=== PATIENT | male | born 1965 | race Caucasian/White ===

== ENCOUNTER 2018-06-07 05:25 | Inpatient (IN) | payer BC ==
[~2018-06-07] VITALS: Ht 172.7 cm; Wt 79.5 kg
[2018-06-07 05:33] VITALS: Ht 172.7 cm; Wt 79.5 kg
[2018-06-07 06:46] LABS: CALCIUM 8.3 mg/dL (8.5-10.1); CARBON DIOXIDE 29.6 mmol/L (21-32); CREATININE SERUM 1.5 mg/dL (0.7-1.3); POTASSIUM SERUM 5.1 mmol/L (3.5-5.1)
[2018-06-07 06:51] LABS: ALBUMIN 3.6 g/dL (3.4-5.0); BILIRUBIN TOTAL 0.33 mg/dL (0.20-1.00)
[2018-06-07 06:59] LABS: BASOPHIL % 0.1 % (0-2); PLATELET COUNT 246 x10^3mcL (130-400); RED CELL DISTRIBUTION WIDTH 13.3 % (11.5-14.5)
[2018-06-07 09:41] LABS: CHOLESTEROL/HDL RATIO 3.3
[2018-06-07 10:24] VITALS: BP 115/71
[2018-06-07 16:38] VITALS: BP 96/65
[2018-06-07 20:35] VITALS: BP 94/59
[2018-06-07 23:04] VITALS: BP 94/59
[2018-06-08 06:23] VITALS: BP 117/71
[2018-06-08 08:13] VITALS: BP 123/78
[2018-06-08 11:53] VITALS: BP 104/64
[2018-06-08 16:53] VITALS: BP 113/62
[2018-06-08 19:35] VITALS: BP 120/76
[2018-06-08 21:54] VITALS: BP 118/75
[2018-06-09 06:11] VITALS: BP 136/88
[2018-06-09 06:30] LABS: CALCIUM 8.4 mg/dL (8.5-10.1); CARBON DIOXIDE 28.3 mmol/L (21-32); CHLORIDE SERUM 106 mmol/L (98-107); GFR1 > 60 mL/min; GLUCOSE SERUM 103 mg/dL (74-106); POTASSIUM SERUM 4.3 mmol/L (3.5-5.1); SODIUM SERUM 140 mmol/L (136-145)
[2018-06-09 07:27] LABS: BASOPHIL % 0.4 % (0-2); PLATELET COUNT 217 x10^3mcL (130-400); RED CELL DISTRIBUTION WIDTH 12.6 % (11.5-14.5)
[2018-06-09 13:14] VITALS: BP 125/71
[2018-06-09 16:55] VITALS: BP 127/77
[2018-06-09 20:51] VITALS: BP 124/77
[2018-06-10 06:02] VITALS: BP 116/73
[2018-06-10 06:25] LABS: BASOPHIL % 0.6 % (0-2); PLATELET COUNT 222 x10^3mcL (130-400); RED CELL DISTRIBUTION WIDTH 12.9 % (11.5-14.5)
[2018-06-10 06:39] LABS: CALCIUM 8.3 mg/dL (8.5-10.1); CARBON DIOXIDE 25.7 mmol/L (21-32); CHLORIDE SERUM 106 mmol/L (98-107); CREATININE SERUM 0.9 mg/dL (0.7-1.3); GFR1 > 60 mL/min; GLUCOSE SERUM 100 mg/dL (74-106); POTASSIUM SERUM 3.9 mmol/L (3.5-5.1); SODIUM SERUM 139 mmol/L (136-145)
[2018-06-10 09:35] VITALS: BP 122/78
[2018-06-10 12:33] VITALS: BP 120/71
[2018-06-10] MEDS ORDERED: GOOD SENSE ASPI81 M3 PO (12:36)
[2018-06-10 14:03] VITALS: BP 94/59
== END 2018-06-10 15:30 | disposition home or self-care (01) | DRG 281 ==
LOC: ED 05:25 → DU 09:17
PROVIDERS: Emergency Medicine; ADMIT Family Medicine
DX: I21.A1 Myocardial infarction type 2 (principal); N17.9 Acute kidney failure, unspecified; N40.0 Benign prostatic hyperplasia without lower urinary tract symptoms; N18.9 Chronic kidney disease, unspecified; G47.33 Obstructive sleep apnea (adult) (pediatric); F41.9 Anxiety disorder, unspecified; Z90.49 Acquired absence of other specified parts of digestive tract
CPT/HCPCS: 83880; A9500; C9113; J1644; J2785; J7030; Q0092; Q0162; Q9967